=== PATIENT | female | born 1965 | race Caucasian/White ===

== ENCOUNTER 2016-11-12 09:05 | Day surgery (SDC) | payer OTHER ==
[2016-11-12 08:56] VITALS: BMI 28.9
[2016-11-12] MEDS ORDERED: PROPOFOL 20 ML ONE ×2 (09:46)
[2016-11-12 10:42] VITALS: TEMP 97.4
[2016-11-12 12:48] VITALS: BP 117/68; PULSE 72
--- NOTE | 2016-11-13 14:32 | PATH ---
Surgical Pathology Report Patient Name: CHING REID [facility]. Rec. #: [id number] /Age/Gender: 1965 (Age: 51) / F Account: [id number] Location: [facility]-ENDOSCOPY Taken: 11/12/2016 Received: 11/12/2016 Reported: 11/13/2016 Physicians: Hank Spaulding D.O. Specimen(s) Received BX SIGMOID COLON POLYP Clinical History Screening colonoscopy Melanosis coli, colon polyp, hemorrhoids Final Diagnosis COLON, SIGMOID, POLYP, BIOPSY: HYPERPLASTIC POLYP. Electronically Signed Kyle Quinones M.D. Gross Description Received in formalin, labeled "biopsy sigmoid colon polyp" is a hilton, irregular portion of soft tissue measuring 0.2 cm in greatest dimension. The specimen is submitted in toto in one cassette. /11/12/201611/12/2016
== END 2016-11-12 11:40 | disposition home or self-care (01) ==
LOC: JASU-ENDO 09:05
PROVIDERS: ATTEND Internal Medicine Gastroenterology
PROC: 0DJD8ZZ Inspection of Lower Intestinal Tract, Via Natural or Artificial Opening Endoscopic (ICD-10-PCS; principal; 2016-11-12 09:30)
DX: Z12.11 Encounter for screening for malignant neoplasm of colon (principal); K63.89 Other specified diseases of intestine; K64.8 Other hemorrhoids
CPT/HCPCS: 88305-TC